=== PATIENT | male | born 1970 | race Caucasian/White ===

== ENCOUNTER 2018-06-15 09:20 | Emergency (ER) | payer OTHER ==
--- NOTE | 2018-06-15 11:18 | Diagnostic Imaging Report ---
CT scan abdomen and pelvis without intravenous contrast HISTORY: Pain Total DLP equals 627 CTDI equals 11.7 Axial sections were obtained from the xiphoid process down to the pubic symphysis. The liver exhibits a homogeneous parenchyma. No focal lesions. The spleen appears normal. No focal amenities seen within the pancreas. No focal renal lesions. No calculi. No hydronephrosis. The exam of the pelvis demonstrates preservation of normal fat planes. No abnormal soft tissue masses or abnormal fluid collections. No bowel dilatation. Surgical changes seen within the pericecal region presumably related to prior appendectomy. There is an approximate 5.5 x 1.2 x 2.4 cm elliptical shaped well-circumscribed fatty density within the subcutaneous tissues adjacent to the margin of the right lower lateral abdomen/pelvis. The appearance suggests a probable lipoma. IMPRESSION: 1. No acute abnormalities 2. Fatty density within the subcutaneous tissues along the lower right lateral abdominal wall consistent with a lipoma.
--- NOTE | 2018-06-15 11:21 | Diagnostic Imaging Report ---
CT scan lumbar spine HISTORY: Pain Total DLP equals 1446 CTDI equals 50.6 Axial sections were obtained to the lumbar spine. Additional sagittal and coronal reformatted images are provided. The exam the L5-S1 level demonstrates degenerative changes with hypertrophic spur formation seen about the vertebral endplates. There is minimal spondylolisthesis of L5 on S1. Findings are associated with hypertrophic bony changes about the facet joints. Spur formation off the posterior endplates at this level results in a mild to moderate (2 3-mm) extradural density with obscuration of anterior epidural fat and mild encroachment on the anterior aspect of the thecal sac. Neural foraminal encroachment on the right side. The remaining interspaces appear normal. No acute abnormalities. No fractures. Mild atherosclerotic calcination seen in the aorta. IMPRESSION: 1. Degenerative changes L5-S1. Hypertrophic spur formation results in a mild to moderate extradural indentation on the anterior spinal canal along with neural foraminal encroachment on the right side.
--- NOTE | 2018-06-15 15:45 | ED Physician Chart ---
ED Chief Complaint/HPI - Patient Information Date Seen:: 06/15/18 Time Seen:: 09:35 Chief Complaint:: Low Back Pain History of Present Illness:: onset x one week of intermittent, sharp, MS type LBP after a twisting/lifting type injury; pt denies trauma, LOC, ALOC, AMS, H/As, neck pain, weakness, dizziness, paresthesias, vertigo, visual or gait changes, C/P, cough, SOB, Abd. pain, A/N/V/D/C, fever, chills, or urinary s/s; pt's last tetanus shot: < 5 years; UTD Allergies:: Allergies Allergy/AdvReac Type Severity Reaction Status Date / Time No Known Allergies Allergy Verified 06/15/18 09:34 Vitals:: Vital Signs - 8 hr 06/15/18 06/15/18 09:37 11:42 Temp 97.8 F 97.8 F HR 80 80 RR 16 18 BP 141/91 O2 Sat % 98 Historian:: Patient, Family Member Review:: Nurse's Note Reviewed, Old Chart Reviewed ED Review of Systems - Review of Systems General/Constitutional: No fever, No chills, No weight loss, No weakness, No diaphoresis, No edema, No loss of appetite Skin: No skin lesions, No rash, No bruising Head: No headache, No light-headedness Eyes: No loss of vision, No pain, No diplopia ENT: No earache, No nasal drainage, No sore throat, No tinnitus Neck: No neck pain, No swelling, No thyromegaly, No stiffness, No mass noted Cardio Vascular: No chest pain, No palpitations, No PND, No orthopnea, No edema Pulmonary: No SOB, No cough, No sputum, No wheezing GI: No nausea, No vomiting, No diarrhea, No pain, No melena, No hematochezia, No constipation, No hematemesis G/U: No dysuria, No frequency, No hematuria, No nacturia Musculoskeletal: No bone or joint pain, Back pain, Muscle pain Endocrine: No polyuria, No polydipsia Psychiatric: No prior psych history, No depression, No anxiety, No suicidal ideation, No homicidal ideation, No auditory hallucination, No visual hallucination Hematopoietic: No bruising, No lymphadenopathy Allergic/Immuno: No urticaria, No angioedema Neurological: No syncope, No focal symptoms, No weakness, No paresthesia, No headache, No seizure, No dizziness, No confusion, No vertigo ED Past Medical History - Past Medical History Obtainable: Yes Past Medical History: No significant medical hx Family History: None Social History: Non Smoker, No Alcohol, No Drug Use, , Employed Surgical History: None Psychiatricy History: None Medication: Reviewed Family Medical History - Family Member Mother Living Status: Still Living Hx Family Diabetes: Yes ED Physical Exam - Physical Examination General/Constitutional: Awake, Well-developed, well-nourished, Alert, No distress, GCS 15, Non-toxic appearing, Ambulatory Head: Atraumatic Eyes: Lids, conjuctiva normal, PERRL, EOMI Skin: Nl inspection, No rash, No skin lesions, No ecchymosis, Well hydrated, No lymphadenopathy ENMT: External ears, nose nl, TM canals nl, Nasal exam nl, Lips, teeth, gums nl , Oropharynx nl, Tonsils nl Neck: Nontender, Full ROM w/o pain, No JVD, No nuchal rigidity, No bruit, No mass, No stridor Other Neck comments:: supple; no meningeal signs; no cervical tenderness; no bruits Respiratory: Nl effort/Exclusion, Clear to Auscultation, No Wheeze/Rhonchi/Rales Cardio Vascular: RRR, No murmur, gallop, rubs, NL S1 S2, Carotid/Femoral/Distal pulses equal bilaterally GI: No tenderness/rebounding/guarding, No organomegaly, No hernia, Normal BS's, Nondistended, No mass/bruits, No McBurney tenderness, Rectum exam nl Other GI comments:: no pulsatile masses : No CVA tenderness Extremities: No tenderness or effusion, Full ROM, normal strength in all extremities, No edema, Normal digits & nails Neuro/Psych: Alert/oriented, DTR's symmetric, Normal sensory exam, Normal motor strength, Judgement/insight normal, Mood normal, Normal gait, No focal deficits Other Neuro/Psych comments:: no focal signs Misc: Normal back, No paraspinal tenderness Other Misc comments:: + L-S bilateral paravertebral soft tissue tenderness with no loss of ROMs; no cellulitis; no FBs; DTRs: 2+ bilaterally; Gait: WNL; good motor, tendon, and sensory functions; good NV functions ED Labs/Radiology/EKG Results - Radiology Results Comments:: NAD ED Septic Shock - . Is Septic Shock (SBP<90, OR Lactate>4 mmol\L) present?: No - <6hrs of presentation: Vital Signs: Vital Signs - 8 hr 06/15/18 06/15/18 09:37 11:42 Temp 97.8 F 97.8 F HR 80 80 RR 16 18 BP 141/91 O2 Sat % 98 ED Reassessment (Disposition) - Reassessment Reassessment:: pt is asymptomatic upon discharge Reassessment Condition:: Improved - Diagnosis Diagnosis:: Dx: Low Back Pain; Back Pain; Lumbar-Sacral Sprains and Strains; Sciatica; Sprains and Strains; Back Injury - Aftercare/Follow up Instructions Aftercare/Follow-Up Instructions:: Counseled pt regarding lab results/diagnosis & need follow up, Refer to Discharge Instructions, Counseled pt & family regarding lab results/diagnosis & need follow up Medication Prescribed:: Rx: Motrin 400mg po tid prn pain - Patient Disposition Discharge/Transfer:: Home Condition at Disposition:: Stable, Improved (X-Rays Instructions; RTER prn if existing s/s reoccur and/or get worse and/or any other new s/s occur; ACIs given for all above Dx; Refer to Spinal Specialist/Orthopedist/Neurologist/ Guest Attendant CALLI; F/U with PMD in one day or prn; RTER prn if concerned)
== END 2018-06-15 12:00 | disposition home or self-care (01) ==
LOC: ER 09:20
DX: S33.9XXA Sprain of unspecified parts of lumbar spine and pelvis, initial encounter (principal); S39.012A Strain of muscle, fascia and tendon of lower back, initial encounter; M54.42 Lumbago with sciatica, left side; M54.41 Lumbago with sciatica, right side; X50.1XXA Overexertion from prolonged static or awkward postures, initial encounter; Y93.89 Activity, other specified; Y92.89 Other specified places as the place of occurrence of the external cause; Y99.8 Other external cause status
CPT/HCPCS: 72131-TC; J1885; Z7502